=== PATIENT | male | born 1995 | race Two or more races ===

== ENCOUNTER 2019-07-31 10:15 | Emergency (ER) | payer MEDICAID ==
[~2019-07-31] VITALS: Ht 170.2 cm; Wt 56.7 kg
--- NOTE | 2019-07-31 10:20 | NUR ---
[id number], PER EMS "CONFUSED" ADMITS TO TAKING XANAX LAST NIGHT, ADMITS TO MARIJUANA USE. 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 PATIENT A/OX3, SLEEPY AND WEAK, ABLE TO ANSWER VERBALLY BUT WILL DOZE OFF, NO DISTRESS NOTED. PER PATIENT HE HAS NO FAMILY OR FRIENDS HE CAN CALL. PATIENT ATTACHED TO THE MOLD SETTER.
--- NOTE | 2019-07-31 12:00 | NUR ---
PATIENT ASLEEP, NO DISTRESS NOTED, AROUSABLE.
[2019-07-31 14:18] VITALS: BP 116/67
--- NOTE | 2019-07-31 14:26 | NUR ---
PATIENT ATE LUNCH AND TOLERATED WELL. THEN WENT BACK TO SLEEP. VITALS STABLE.
--- NOTE | 2019-07-31 16:58 | NUR ---
PATIENT AMBULATORY WITH STEADY GAIT, A/OX4, BREATHING EVEN AND UNLABORED, GIVEN MULTIPLE FOOD TRAY AND SANDWICHES, TAP CARD PROVIDED, WITH ADEQUATE CLOTHES. Patient given written and verbal discharge instructions. Patient verbalizes understanding of instructions. Patient is ambulatory with steady gait. Refuses offer of penitentiary placement. Patient given list of available shelters in surrounding area.
== END 2019-07-31 17:01 | disposition home or self-care (01) ==
LOC: ER 10:17
DX: T42.4X1A Poisoning by benzodiazepines, accidental (unintentional), initial encounter (principal); R41.82 Altered mental status, unspecified; Y92.89 Other specified places as the place of occurrence of the external cause